=== PATIENT | female | born 1970 | race Caucasian/White ===

== ENCOUNTER 2018-11-02 12:15 | Emergency (ER) | payer SELFPAY ==
[2018-11-02] MEDS ORDERED: IBUPROFEN 400 MG TAB ONE ×2 (13:04→13:06)
[2018-11-02] MEDS ORDERED: ACETAMINOPHEN 325 MG TABLET ONE ×2 (13:04→13:06)
--- NOTE | 2018-11-02 13:12 | RAD REPORT ---
EXAM DESCRIPTION: RAD - Hand Right 3 View - 11/02/2018 1:03 pm CLINICAL HISTORY: fall from chair;Pain Trauma, pain COMPARISON: No comparisons FINDINGS: Soft tissue swelling affects the first digit. No fracture or dislocation evident.
--- NOTE | 2018-11-02 13:25 | ER ---
Nurse's Notes [facility] Name: Jose Osman Age: 48 yrs Sex: Female : 1970 Arrival Date: 11/02/2018 Time: 12:18 Bed 12 Private MD: Diagnosis: Pain in right wrist-from fall;Pain in right hand-from fall Presentation: 11/02 12:27 Presenting complaint: Patient states: "yesterday I was helping my daughter hand aj1 pictures and I fell off a chair and today my thumb and all through my wrist is killing me" Patient reports pain to right hand and wrist. Transition of care: patient was not received from another setting of care. Onset of symptoms was November 01, 2018. Risk Assessment: Do you want to hurt yourself or someone else? Patient reports no desire to harm self or others. Initial Sepsis Screen: Does the patient meet any 2 criteria? No. Patient's initial sepsis screen is negative. Does the patient have a suspected source of infection? No. Patient's initial sepsis screen is negative. Care prior to arrival: None. 12:27 Method Of Arrival: Ambulatory aj 12:27 Acuity: HYUN 4 aj1 Triage Assessment: 12:28 General: Appears in no apparent distress. comfortable, Behavior is calm, cooperative, aj1 appropriate for age. Pain: Complains of pain in right hand and right wrist Pain does not radiate. Pain currently is 8 out of 10 on a pain scale. Quality of pain is described as shooting, Pain began 1 day ago. Aggravated by repositioning. Neuro: Level of Consciousness is awake, alert, obeys commands, Oriented to person, place, time, situation, Speech is normal, Facial symmetry appears normal. Cardiovascular: Patient's skin is warm and dry. Respiratory: Airway is patent Respiratory effort is even, unlabored, Respiratory pattern is regular, symmetrical. GI: No signs and/or symptoms were reported involving the gastrointestinal system. : No signs and/or symptoms were reported regarding the genitourinary system. Derm: No signs and/or symptoms reported regarding the dermatologic system. Skin is pink, warm \\T\\ dry. normal. Musculoskeletal: Range of motion: limited in right wrist, MCP of right thumb and CMC of right thumb. 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 - Social history:: Smoking status: Patient uses tobacco products, smokes one pack cigarettes per day. - Ebola Screening: : Patient denies travel to an Ebola-affected area in the 21 days before illness onset. Screenin:30 Abuse screen: Denies threats or abuse. Denies injuries from another. Nutritional aj1 screening: No deficits noted. Tuberculosis screening: No symptoms or risk factors identified. 14:02 Fall Risk None identified. sg Assessment: 12:30 Reassessment: see triage assessment. aj1 Vital Signs: 12:28 BP 131 / 80; Pulse 87; Resp 18; Temp 97.8; Pulse Ox 97% on R/A; Weight 68.04 kg (R); aj1 Height 5 ft. 0 in. (152.40 cm) (R); 12:28 Body Mass Index 29.29 (68.04 kg, 152.40 cm) aj1 ED Course: 12:18 Patient arrived in ED. as 12:28 Triage completed. aj1 12:28 Arm band placed on Patient placed in an exam room. aj1 12:30 Patient has correct armband on for positive identification. Call light in reach. aj1 12:30 No provider procedures requiring assistance completed. aj1 12:33 Migue Bryson PA is PHCP. cp 12:33 Montez Anderson MD is Attending Physician. cp 12:46 Unique Mar RN is Primary Nurse. ss 13:02 X-ray completed. Portable x-ray completed in exam room. kp1 13:08 XRAY Hand RIGHT 3 View In Process Unspecified. EDMS 13:24 Richard Rodriguez MD is Referral Physician. cp 14:01 Patient did not have IV access during this emergency room visit. sg 14:02 Orthoglass splint: Thumb spica splint applied on right forearm. sg Administered Medications: 12:53 Drug: Ibuprofen 800 mg Route: PO; ss 14:01 Follow up: Response: No adverse reaction; Pain is decreased sg 12:53 Drug: Tylenol 650 mg Route: PO; ss 14:01 Follow up: Response: No adverse reaction sg Outcome: 13:24 Discharge ordered by . yovany 14:01 Discharged to home ambulatory. sg 14:01 Condition: good 14:01 Discharge instructions given to patient, family, Instructed on discharge instructions, follow up and referral plans. medication usage, Demonstrated understanding of instructions, follow-up care, medications. 14:02 Patient left the ED. sg Signatures: Dispatcher [employer] EDFrieda Masterson RN RN aj1 Bryan Littlejohn RN RN sg Martinez, Amelia as Smirch, Shelby, RN RN ss Page, Corey, PA PA Lyubov Yan kp1
--- NOTE | 2018-11-02 13:26 | EDPHYS ---
Physician Documentation [facility] Name: Jose Osman Age: 48 yrs Sex: Female : 1970 Arrival Date: 11/02/2018 Time: 12:18 Bed 12 Private MD: ED Physician Montez Anderson HPI: 11/02 12:38 This 48 yrs old Female presents to ER via Ambulatory with complaints of Hand cp Pain. 12:38 The patient or guardian reports pain, tenderness. The complaints affect the right hand cp and right wrist. Context: resulted from a fall, on an outstretched hand. Onset: The symptoms/episode began/occurred yesterday. Associated signs and symptoms: Pertinent negatives: cyanosis distally, numbness distally. 12:38 Modifying factors: the symptoms are aggravated by movement. 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 - Social history:: Smoking status: Patient uses tobacco products, smokes one pack cigarettes per day. - Ebola Screening: : Patient denies travel to an Ebola-affected area in the 21 days before illness onset. ROS: 12:39 Eyes: Negative for injury, pain, redness, and discharge. cp 12:39 Constitutional: Negative for body aches, chills, fever, poor PO intake. 12:39 ENT: Negative for drainage from ear(s), ear pain, sore throat, difficulty swallowing, difficulty handling secretions. 12:39 Neck: Negative for pain with movement, pain at rest, stiffness. 12:39 Cardiovascular: Negative for chest pain, palpitations. 12:39 Respiratory: Negative for cough, shortness of breath, wheezing. 12:39 Abdomen/GI: Negative for abdominal pain, nausea, vomiting, and diarrhea. 12:39 Back: Negative for pain at rest, pain with movement, radiated pain. 12:39 MS/extremity: Positive for pain, tenderness, of the right hand and right wrist, Negative for decreased range of motion, deformity, paresthesias. 12:39 Neuro: Negative for altered mental status, headache, loss of consciousness, weakness. 12:39 All other systems are negative. Exam: 12:41 Head/Face: Normocephalic, atraumatic. cp 12:41 Constitutional: The patient appears in no acute distress, alert, awake, non-toxic, well developed, well nourished. 12:41 Musculoskeletal/extremity: Extremities: grossly normal except: noted in the right thumb and ulna side of right wrist: pain, swelling, tenderness, positive for snuff box tenderness to palpation, There is no evidence of decreased ROM, deformity, Perfusion: the extremity is normally perfused throughout, Sensation intact. Vital Signs: 12:28 BP 131 / 80; Pulse 87; Resp 18; Temp 97.8; Pulse Ox 97% on R/A; Weight 68.04 kg (R); aj1 Height 5 ft. 0 in. (152.40 cm) (R); 12:28 Body Mass Index 29.29 (68.04 kg, 152.40 cm) aj1 Procedures: 14:00 Splinting: Splint applied to right hand and right wrist using Orthoglass splint, thumb cp spica type. applied by nurse. Examined by me, post splint application: neurovascular intact, Patient tolerated well. MDM: 12:33 Patient medically screened. cp 13:00 Differential diagnosis: dislocation, closed fracture, contusion, tendonitis. cp 13:23 Data reviewed: vital signs, nurses notes, radiologic studies, plain films, and as a cp result, I will discharge patient. 13:23 Test interpretation: by ED physician or midlevel provider: plain radiologic studies. cp Counseling: I had a detailed discussion with the patient and/or guardian regarding: the historical points, exam findings, and any diagnostic results supporting the discharge/admit diagnosis, radiology results, the need for outpatient follow up, a orthopedic surgeon, to return to the emergency department if symptoms worsen or persist or if there are any questions or concerns that arise at home. Response to treatment: the patient's symptoms have markedly improved after treatment, and as a result, I will discharge patient. 11/02 12:38 Order name: XRAY Hand RIGHT 3 View; Complete Time: 13:21 cp 11/02 13:21 Interpretation: Report reviewed. cp 11/02 13:22 Order name: Splint - Thumb Spica: orthoglass type; Complete Time: 14:01 cp Administered Medications: 12:53 Drug: Ibuprofen 800 mg Route: PO; ss 14:01 Follow up: Response: No adverse reaction; Pain is decreased sg 12:53 Drug: Tylenol 650 mg Route: PO; ss 14:01 Follow up: Response: No adverse reaction sg Disposition: 15:11 Co-signature as Attending Physician, Montez Anderson MD. rn Disposition: 11/02/18 13:24 Discharged to Home. Impression: Pain in right wrist - from fall, Pain in right hand - from fall. - Condition is Stable. - Discharge Instructions: Wrist Pain, Hand Pain. - Prescriptions for Ibuprofen 800 mg Oral Tablet - take 1 tablet by ORAL route every 8 hours As needed take with food; 30 tablet. - Medication Reconciliation Form, Thank You Letter, Antibiotic Education, Prescription Opioid Use form. - Follow up: Richard Rodriguez MD; When: 5 - 6 days; Reason: Recheck today's complaints. - Problem is new. - Symptoms have improved. Signatures: Dispatcher [employer] EDFrieda Masterson RN RN aj1 Bryan Littlejohn RN RN sg Nieto, Roman, MD MD rn Smirch, Shelby, RN RN ss Page, Corey, PA PA cp Corrections: (The following items were deleted from the chart) 14:02 13:24 11/02/2018 13:24 Discharged to Home. Impression: Pain in right wrist - from fall; sg Pain in right hand - from fall. Condition is Stable. Forms are Medication Reconciliation Form, Thank You Letter, Antibiotic Education, Prescription Opioid Use. Follow up: Richard Rodriguez; When: 5 - 6 days; Reason: Recheck today's complaints. Problem is new. Symptoms have improved. cp
== END 2018-11-02 14:02 | disposition home or self-care (01) ==
LOC: ER 12:15
PROC: 2W3CX1Z Immobilization of Right Lower Arm using Splint (ICD-10-PCS; principal; 2018-11-02)
DX: M79.641 Pain in right hand (principal); F17.210 Nicotine dependence, cigarettes, uncomplicated
CPT/HCPCS: 99283

== ENCOUNTER → 2024-01-21 | Day surgery (SDC) | payer OTHER ==
[~2024-01-21] MED LIST: CEFAZOLIN SODIUM 1 GM/VIAL ONE; FENTANYL CITR 100 MCG/2 ML ONE; HYDROMORPHONE HCL 1 MG/ML INJ ONE; LIDOCAINE 2% MPF 5 ML VIAL ONE; MIDAZOLAM HCL 2 MG/2 ML INJ ONE; Ringers Lactate 1,000 ML IV ONE; propofoL 200 MG/20 ML VIAL IV ONE
--- NOTE | 2024-01-21 08:06 | OP ---
Date of Procedure: 01/21/2024 Surgeon: Bryan Francois MD Preoperative Diagnosis: Left third trigger digit. Postoperative Diagnosis: Left third trigger digit. Procedure Performed: Left third trigger digit release. Estimated Blood Loss: Less than 3 cc. Complications: There were no complications. Specimens: No pathology specimens sent. Indications For Operation: Ms. Keith is a 53-year-old, who unfortunately has pain and locking of h er left third digit. There is pain at the A1 padilla and she demonstrates active triggering. She den ies any numbness or tingling, and risks, benefits, and alternatives of different methods of treating this have been discussed with her including the possibility of injection, observation, or release. S he says she understands things as presented and opts for release. All of her questions have been inv ited and answered. Description Of Procedure: The patient was taken to the operating room and placed in supine position. General anesthesia was easily obtained by the Anesthesia staff. Following this, well-padded tourni quet was placed on superior left arm. Left upper extremity was then prepped and draped in usual ster ile fashion for the procedure. The arm was then elevated, but not exsanguinated. Tourniquet was the n raised. A standard incision was made transversely at the region of the A1 padilla. This was made c arefully through skin only. Meticulous hemostasis was being maintained using bipolar electrocautery. After just going through the skin only, blunt dissection was used until the tendon, tendon sheath, and A1 padilla were identified. A sid was made in the A1 padilla with a izquierdo of synovial fluid. This was followed in a proximal to distal direction until there were no constricting bands as well as in distal to proximal direction until there were no constricting bands. After this, this finger was bro ught through range of motion and was found to have no abnormal tendon motion. The wound was gently i rrigated and skin was closed using nylon sutures. The patient was placed in a well-padded sterile dr essing, awakened, taken to recovery room in good condition. There were no complications. SE/MODL Voice ID: [id number] Report ID: [id number]
[2024-01-21 11:03] VITALS: BP 129/80; TEMP 97.3; O2SAT 96
--- NOTE | 2024-01-21 17:00 | EKG ---
Test Date: 2024-01-20 Test Time: 10:04:02 Slate Roofer: PREO MEASUREMENT RESULTS: Intervals: Rate: 68 AL: 164 QRSD: 80 QT: 414 QTc: 440 Kress: P: 55 AL: 164 QRS: 76 T: 32 INTERPRETIVE STATEMENTS: Normal sinus rhythm Normal ECG No previous ECG available for comparison Electronically Signed On 01-21-24 16:55:26 CDT by Pranav Piper
== END ==
LOC: OR 05:59
PROVIDERS: ATTEND Orthopaedic Surgery
PROC: 0LN80ZZ Release Left Hand Tendon, Open Approach (ICD-10-PCS; principal; 2024-01-21 07:00)
DX: M65.332 Trigger finger, left middle finger (principal); E78.00 Pure hypercholesterolemia, unspecified
CPT/HCPCS: 93005; 26055; J2704; J2001; J2250; J3010; J1170; J7120; J0690

== ENCOUNTER 2024-01-29 08:45 | Emergency (ER) | payer OTHER ==
--- NOTE | 2024-01-29 09:59 | RAD REPORT ---
Exam:Wrist Left 3 View HISTORY: Left wrist pain FINDINGS: No fracture or dislocation seen No significant bone or joint abnormality noted
--- NOTE | 2024-01-29 09:59 | RAD REPORT ---
Exam:Hand Left 3 View CLINICAL HISTORY: Left hand pain FINDINGS: No fracture or dislocation seen Mild narrowing and small osteophytes involves several DIP joints.
--- NOTE | 2024-01-29 12:57 | ER ---
Nurse's Notes [facility] Name: Jose Osman Age: 53 yrs Sex: Female : 1970 Arrival Date: 01/29/2024 Time: 08:45 Bed 19 Private MD: Diagnosis: Postoperative left hand swelling Presentation: 01/28 08:58 Chief complaint: Patient states: LEFT HAND SWELLING x2 DAYS, HAND SX BY [place] LAST bp SATURDAY. Coronavirus screen: At this time, the client does not indicate any symptoms associated with coronavirus-19. Ebola Screen: No symptoms or risks identified at this time. Initial Sepsis Screen: Does the patient meet any 2 criteria? No. Patient's initial sepsis screen is negative. Does the patient have a suspected source of infection? No. Patient's initial sepsis screen is negative. Risk Assessment: Do you want to hurt yourself or someone else? Patient reports no desire to harm self or others. Onset of symptoms is unknown. 08:58 Method Of Arrival: Ambulatory bp 08:58 Acuity: HYUN 3 bp Triage Assessment: 09:00 General: Appears in no apparent distress. uncomfortable, Behavior is cooperative, bp appropriate for age, anxious. Pain: Complains of pain in left hand. Musculoskeletal: Swelling present in left hand. Historical: - Allergies: 09:00 No Known Drug Allergies; bp - Home Meds: 09:00 None [Active]; bp - PMHx: 09:00 None; bp - Immunization history:: Adult Immunizations up to date. - Infectious Disease History:: Denies. - Social history:: Smoking status: Patient denies any tobacco usage or history of. Screenin:01 [facility] ED Fall Risk Assessment (Adult) History of falling in the last 3 months, bp including since admission No falls in past 3 months (0 pts) Confusion or Disorientation No (0 pts) Intoxicated or Sedated No (0 pts) Impaired Gait No (0 pts) Mobility Assist Device Used No (0 pt) Altered Elimination No (0 pt) Score/Fall Risk Level 0 - 2 = Low Risk. Abuse screen: Denies threats or abuse. Denies injuries from another. Nutritional screening: No deficits noted. Tuberculosis screening: No symptoms or risk factors identified. Assessment: 09:15 Reassessment: Patient appears in no apparent distress at this time. Patient and/or db family updated on plan of care and expected duration. Pain level reassessed. Patient is alert, oriented x 3, equal unlabored respirations, skin warm/dry/pink. General: Appears in no apparent distress. comfortable, Behavior is calm, cooperative, appropriate for age. Pain: Complains of pain in left hand. Neuro: Level of Consciousness is awake, alert, obeys commands, Oriented to person, place, time, situation. Respiratory: Airway is patent Respiratory effort is even, unlabored, Respiratory pattern is regular, symmetrical. 11:00 General: Appears in no apparent distress. comfortable, Behavior is calm, cooperative. cm10 Neuro: No deficits noted. Level of Consciousness is awake, alert, obeys commands, Oriented to person, place, time, situation. Respiratory: No deficits noted. Airway is patent Respiratory effort is even, unlabored, Respiratory pattern is regular, symmetrical. Musculoskeletal: Swelling present in left hand. 12:37 Reassessment: Patient appears in no apparent distress at this time. No changes from cm10 previously documented assessment. Patient and/or family updated on plan of care and expected duration. Pain level reassessed. Patient is alert, oriented x 3, equal unlabored respirations, skin warm/dry/pink. Vital Signs: 08:58 BP 148 / 80; Pulse 80; Resp 20; Temp 98.1; Pulse Ox 99% ; Weight 58.51 kg; Height 5 ft. bp 0 in. ; 09:45 BP 129 / 76; Pulse 74; Resp 16; Pulse Ox 95% ; db 12:11 BP 140 / 87; Pulse 75; Resp 16; Pulse Ox 100% on R/A; cm10 08:58 Body Mass Index 25.19 (58.51 kg, 152.4 cm) bp ED Course: 08:47 Patient arrived in ED. mr 08:57 Sharifa Ortiz MD is Attending Physician. sd2 08:59 Triage completed. bp 09:00 Arm band placed on. bp 09:01 Patient has correct armband on for positive identification. bp 09:51 XRAY Hand LEFT 3 View In Process Unspecified. EDMS 09:51 XRAY Wrist LEFT 3 view In Process Unspecified. EDMS 09:55 Mikayla Adams, DOROTHY is Primary Nurse. db 10:57 Report given to DOROTHY MASON. Warm blanket given. db 11:07 Sanjuana Worthy, RN is Primary Nurse. cm10 11:07 Patient taken to ultrasound. via wheelchair. cm10 12:04 Patient moved back from ultrasound. cm10 12:09 UPPER EXTREMITY VENOUS UNILATE In Process Unspecified. EDMS 12:56 Jan Dodd MD is Referral Physician. sd2 13:01 Provided Education on: Follow-up instructions. cm10 13:01 No provider procedures requiring assistance completed. Patient did not have IV access cm10 during this emergency room visit. Administered Medications: No medications were administered Medication: 09:57 VIS not applicable for this client. db Outcome: 12:56 Discharge ordered by . sd2 13:01 Discharged to home ambulatory, with family, cm10 13:01 Condition: good 13:01 Discharge instructions given to patient, Instructed on discharge instructions, follow up and referral plans. Demonstrated understanding of instructions, follow-up care, 13:02 Patient left the ED. cm10 Signatures: Dispatcher [employer] EDNE Bertha Bautista, Mir Reg mr Moises Diaz, RN RN Sharifa Cortes MD MD sd2 Mikayla Adams, RN RN Sanjuana Woods, RN RN cm10 Corrections: (The following items were deleted from the chart) 12:15 12:14 Inserted saline lock: 20 gauge in right antecubital area, using aseptic cm10 technique. Blood collected. Flushed with 10 mL NS cm10 12:15 12:14 Initial lab(s) drawn, by me, sent to lab. EKG done, by ED staff, reviewed by cm10 Sharifa Ortiz MD cm10
--- NOTE | 2024-01-29 12:57 | EDPHYS ---
Physician Documentation [facility] Name: Jose Osman Age: 53 yrs Sex: Female : 1970 Arrival Date: 01/29/2024 Time: 08:45 Bed 19 Private MD: ED Physician Sharifa Ortiz HPI: 01/28 09:20 This 53 yrs old Female presents to ER via Ambulatory with complaints of Hand Swelling. sd2 09:20 53 yo F presents with CC of L hand and wrist swelling for the past 2 days. Had a left sd2 3rd digit trigger release performed with Dr. Francois Saturday of last week or approximately 8 days ago. Reports pain and swelling has been progressively worsening. Called the clinic but was told Alessandro was out of town and to come to the ER if it worsened. . Historical: - Allergies: 09:00 No Known Drug Allergies; bp - Home Meds: 09:00 None [Active]; bp - PMHx: 09:00 None; bp - Immunization history:: Adult Immunizations up to date. - Infectious Disease History:: Denies. - Social history:: Smoking status: Patient denies any tobacco usage or history of. ROS: 09:20 Constitutional: Negative for fever, chills, and weight loss, Cardiovascular: Negative sd2 for chest pain, palpitations, and edema, Respiratory: Negative for shortness of breath, cough, wheezing. MS/Extremity: Negative for injury and deformity, positive for pain and swelling Skin: Negative for injury, rash, and discoloration, Exam: 09:20 Constitutional: This is a well developed, well nourished patient who is awake, alert, sd2 and in no acute distress. Head/Face: Normocephalic, atraumatic. Skin: Warm, dry with normal turgor. Normal color with no rashes, no lesions, and no evidence of cellulitis. incision noted to mid palm with sutures in place c/d/i with swelling noted to the entire hand and all fingers with sausage-like swelling at the digits. No pain to the digits only to the areas of the palm and wrist inferior to the incision site MS/ Extremity: Pulses equal, no cyanosis. Neurovascular intact. Full, normal range of motion. Neuro: Awake and alert, GCS 15, oriented to person, place, time, and situation. Sensory intact Psych: Awake, alert, with orientation to person, place and time. Behavior, mood, and affect are within normal limits. Vital Signs: 08:58 BP 148 / 80; Pulse 80; Resp 20; Temp 98.1; Pulse Ox 99% ; Weight 58.51 kg; Height 5 ft. bp 0 in. ; 09:45 BP 129 / 76; Pulse 74; Resp 16; Pulse Ox 95% ; db 12:11 BP 140 / 87; Pulse 75; Resp 16; Pulse Ox 100% on R/A; cm10 08:58 Body Mass Index 25.19 (58.51 kg, 152.4 cm) bp MDM: 08:57 Patient medically screened. sd2 09:20 Differential diagnosis: wound infection, tenosynovitis, cellulitis, seroma among sd2 others. Data reviewed: vital signs, nurses notes, radiologic studies. 10:57 Management of patient was discussed with the following: Search Engine Optimization Strategist: Dr. Dodd, Stephen, sd2 came to evaluate the patient. Suspects inflammatory process. Will call in anti inflammatories for the patient and follow her up in clinic later this week. Recommends US to rule out DVT prior to discharge.. 12:58 Counseling: I had a detailed discussion with the patient and/or guardian regarding the sd2 historical points, exam findings, and any diagnostic results supporting the discharge/admit diagnosis, radiology results, the need for outpatient follow up, to return to the emergency department if symptoms worsen or persist or if there are any questions or concerns that arise at home. ED course: Preliminary ultrasound report by the windshield technician shows negative for DVT. We are still pending confirmation by radiology. However, the patient needs to leave to orange picking supervisor her grandchild. She was advised that we cannot fully rule out a DVT at this time and that we will call her for any abnormal results. She is comfortable with plan for discharge and verbalizes understanding of strict return precautions.. 01/28 09:17 Order name: XRAY Hand LEFT 3 View; Complete Time: 10:04 sd2 01/28 09:17 Order name: XRAY Wrist LEFT 3 view; Complete Time: 10:04 sd2 01/28 11:15 Order name: UPPER EXTREMITY VENOUS UNILATE EDMS Administered Medications: No medications were administered Disposition Summary: 01/29/24 12:56 Discharge Ordered Problem: new sd2 Symptoms: have improved sd2 Condition: Stable sd2 Diagnosis - Postoperative left hand swelling sd2 Followup: sd2 - With: Jan Dodd MD - When: 1 - 2 days - Reason: Recheck today's complaints, Continuance of care, Re-evaluation by your physician Discharge Instructions: - Discharge Summary Sheet sd2 - Hand Pain sd2 Forms: - Medication Reconciliation Form sd2 - Antibiotic Education sd2 - Prescription Opioid Use sd2 - Patient Portal Instructions sd2 - Leadership Thank You Letter sd2 Signatures: Dispatcher [employer] Moises Miller, RN RN Sharifa Cortes MD MD sd2 Corrections: (The following items were deleted from the chart) 11:15 10:58 Extremity Venous [employer]+[email or web address] ordered. SINTIAID ODELL
[2024-01-29 13:06] VITALS: TEMP 98.1
[2024-01-29 13:09] VITALS: BP 140/87; O2SAT 100
--- NOTE | 2024-01-29 13:48 | RAD REPORT ---
EXAMINATION: UPPER EXTREMITY VENOUS UNILATE CLINICAL INDICATION: Left arm swelling TECHNIQUE: Complete bilateral duplex sonography of the left upper extremity veins was performed. The examination included compression for vein patency, color Doppler imaging and flow augmentation in response to distal compression of the internal jugular, brachiocephalic, subclavian, axillary, brachi al, radial, ulnar, cephalic and basilic veins. COMPARISON: No prior exam. FINDINGS: Duplex sonography testing of the veins of the left upper extremity is completed. Color flow imaging s hows all veins to be compressible with [id number] color filling. Pulsatile and phasic flow is present within all left upper extremity deep and superficial veins examined. IMPRESSION: No evidence of left upper extremity thrombus
== END 2024-01-29 13:02 | disposition home or self-care (01) ==
LOC: ER 08:45
DX: L76.82 Other postprocedural complications of skin and subcutaneous tissue (principal); Z98.890 Other specified postprocedural states
CPT/HCPCS: 93971; 99284

== ENCOUNTER 2024-09-20 17:27 | Emergency (ER) | payer BC, OTHER ==
[2024-09-20] MEDS ORDERED: predniSONE 20 MG TAB ONE (18:30)
[2024-09-20] MEDS ORDERED: ACETAMINOPHEN 500 MG TAB ONE (18:31)
[2024-09-20] MEDS ORDERED: IBUPROFEN 400 MG TAB ONE (18:31)
--- NOTE | 2024-09-20 18:33 | RAD REPORT ---
EXAMINATION: UPPER EXTREMITY VENOUS UNILATE CLINICAL INDICATION: Female, 54 years old.PAIN RIGHT TECHNIQUE: Multiplanar grayscale and color Doppler images were obtained in a upper extremity venous ultrasound. Spectral analysis of the Doppler waveforms were performed. COMPARISON: No prior exams FINDINGS: The internal jugular vein, subclavian vein, axillary vein, basilic vein, brachial vein, cephalic vein , radial vein, and ulnar vein were evaluated and patent. The brachial vein, cephalic vein, radial vein, and ulnar veins were compressible and patent. IMPRESSION: No evidence of deep venous thrombosis in the right upper extremity.
--- NOTE | 2024-09-20 18:57 | RAD REPORT ---
EXAM: Hand Right 3 View HISTORY: PAIN COMPARISON: None FINDINGS: Bones: No acute fracture identified. Alignment:No significant malalignment. Degenerative changes:Mild degenerative changes are present the first MCP joint. Degenerative changes are also present at the interphalangeal joints, most advanced at the second DIP joint where the findings are moderate. No erosions identified. Other: n/a IMPRESSION: No acute osseous abnormality involving the imaged hand. Chronic changes as noted above.
--- NOTE | 2024-09-20 19:18 | EDPHYS ---
Physician Documentation [facility] Name: Jose Osman Age: 54 yrs Sex: Female : 1970 Arrival Date: 09/20/2024 Time: 17:27 Bed DX3 Private MD: ED Physician Sally Murphy HPI: 09/20 18:00 This 54 yrs old Female presents to ER via Ambulatory with complaints of Hand Swelling. cp 18:00 The patient or guardian reports pain, swelling, tenderness. The complaints affect the cp right hand. Context: resulted from an unknown cause. 18:00 Onset: The symptoms/episode began/occurred yesterday. cp 18:00 Associated signs and symptoms: Pertinent negatives: cyanosis distally, decreased cp sensation distally, numbness distally, tingling distally. patient is RHD. Historical: - Allergies: 18:03 No Known Allergies; cm10 - Home Meds: 18:03 None [Active]; cm10 - PMHx: 18:03 None; cm10 - PSHx: 18:03 Total abdominal hysterectomy; cm10 - Immunization history:: Adult Immunizations up to date. - Infectious Disease History:: Denies. - Social history:: Smoking status: Patient reports the use of cigarette tobacco products, smokes one-half pack cigarettes per day. ROS: 18:05 MS/extremity: Positive for pain, swelling, tenderness, of the right hand, Negative for cp injury or acute deformity, decreased range of motion, paresthesias, 18:05 Constitutional: Negative for body aches, chills, fever, poor PO intake, cp 18:05 Neck: Negative for pain with movement, pain at rest, stiffness, 18:05 Cardiovascular: Negative for chest pain, edema, palpitations, 18:05 Respiratory: Negative for cough, shortness of breath, wheezing, 18:05 Abdomen/GI: Negative for abdominal pain, vomiting, diarrhea, constipation, 18:05 Neuro: Negative for altered mental status, headache, numbness, tingling, weakness, 18:05 All other systems are negative, Exam: 18:08 Constitutional: The patient appears in no acute distress, alert, awake, non-toxic, well cp developed, well nourished, 18:08 Neck: C-spine: vertebral tenderness, is not appreciated, crepitus, is not appreciated, cp ROM/movement: is normal, is supple, without pain, no range of motions limitations, 18:08 Chest/axilla: Inspection: normal, 18:08 Cardiovascular: Rate: normal, Rhythm: regular, Pulses: Pulses are 2+ in right radial artery. 18:08 Respiratory: the patient does not display signs of respiratory distress, Respirations: normal, no use of accessory muscles, no retractions, labored breathing, is not present, Breath sounds: are clear throughout, no decreased breath sounds, no stridor, no wheezing, 18:08 Back: pain, is absent, ROM is normal, 18:08 Skin: cellulitis, is not appreciated, no rash present. 18:08 Neuro: Orientation: to person, place \T\ time. Mentation: is normal, Motor: moves all fours, strength is normal, Sensation: no obvious gross deficits, Vital Signs: 18:02 BP 143 / 85; Pulse 77; Resp 16; Temp 97.8(TE); Pulse Ox 99% on R/A; Weight 62.6 kg; cm10 Height 5 ft. 1 in. ; Pain 8/10; 18:02 Body Mass Index 26.07 (62.60 kg, 154.94 cm) cm10 18:02 Pain Scale: Adult cm10 MDM: 18:00 Differential diagnosis: dislocation, closed fracture, tendonitis, cervical cp radiculopathy, dvt. 18:10 Medical Screening Exam initiated 19:16 Data reviewed: vital signs, nurses notes, radiologic studies, plain films, ultrasound, cp and as a result, I will discharge patient. 19:16 I considered the following discharge prescriptions or medication management in the emergency department Medications were administered in the Emergency Department. See MAR. Counseling: I had a detailed discussion with the patient and/or guardian regarding the historical points, exam findings, and any diagnostic results supporting the discharge/admit diagnosis, radiology results, the need for outpatient follow up, a orthopedic surgeon, to return to the emergency department if symptoms worsen or persist or if there are any questions or concerns that arise at home. Response to treatment: the patient's symptoms have mildly improved after treatment, and as a result, I will discharge patient. 09/20 17:55 Order name: XRAY Hand RIGHT 3 View; Complete Time: 19:14 cp 09/20 17:59 Order name: UPPER EXTREMITY VENOUS UNILATE; Complete Time: 18:35 EDMS 09/20 18:35 Interpretation: Report reviewed. cp Administered Medications: 18:38 Drug: Ibuprofen PO 800 mg PO once Route: PO; cm10 19:26 Follow up: Response: No adverse reaction cm10 18:38 Drug: Acetaminophen PO 1000 mg PO once Route: PO; cm10 19:26 Follow up: Response: No adverse reaction cm10 18:38 Drug: predniSONE PO 40 mg PO once Route: PO; cm10 19:26 Follow up: Response: No adverse reaction cm10 Disposition: 09/21 17:59 Chart complete. cp Disposition Summary: 09/20/24 19:17 Discharge Ordered Notes: Location: Home cp Problem: new cp Symptoms: have improved cp Condition: Stable cp Diagnosis - Pain in hand and fingers - right cp Followup: cp - With: Private Physician - When: 5 - 6 days - Reason: pain and swelling continues Discharge Instructions: - Discharge Summary Sheet cp - Hand Pain cp Forms: - Medication Reconciliation Form cp - Antibiotic Education cp - Prescription Opioid Use cp - Patient Portal Instructions cp - Leadership Thank You Letter cp Prescriptions: - diclofenac potassium 50 mg Oral tablet - take 1 tablet ORAL route 2 times per day as needed for pain; 30 tablet; cp Refills: 0, Product Selection Permitted - Medrol (Cody) 4 mg Oral Tablets, Dose Pack - take 1 tablet ORAL route as directed - follow package instructions; 1 packet; cp Refills: 0, Product Selection Permitted Signatures: Dispatcher [employer] EDMS Migue Bryson PA PA cp Martinez, Clarissa RN RN cm10 Corrections: (The following items were deleted from the chart) 09/20 17:55 17:55 Hand Right 3 View+RAD.RAD.BRZ ordered. EDMS EDMS 17:56 17:56 Extremity Venous Uni Ltd+US.RAD.BRZ ordered. EDMS EDMS
--- NOTE | 2024-09-20 19:18 | ER ---
Nurse's Notes [facility] Name: Jose Osman Age: 54 yrs Sex: Female : 1970 Arrival Date: 09/20/2024 Time: 17:27 Bed DX3 Private MD: Diagnosis: Pain in hand and fingers-right Presentation: 09/20 18:02 Chief complaint: Patient states: RIGHT HAND PAIN AND SWELLING ONSET YESTERDAY. DENIES cm10 ANY TRAUMA OR INJURY. Coronavirus screen: Client denies travel out of the [place] in the last 14 days. Ebola Screen: Patient denies travel to an Ebola-affected area in the 21 days before illness onset. Initial Sepsis Screen: Does the patient meet any 2 criteria? No. Patient's initial sepsis screen is negative. Does the patient have a suspected source of infection? No. Patient's initial sepsis screen is negative. Risk Assessment: Do you want to hurt yourself or someone else? Patient reports no desire to harm self or others. Onset of symptoms was September 20, 2024. 18:02 Method Of Arrival: Ambulatory cm10 18:02 Acuity: HYUN 4 cm10 Triage Assessment: 18:04 General: Appears in no apparent distress. comfortable, Behavior is calm, cooperative. cm10 Neuro: No deficits noted. Level of Consciousness is awake, alert, obeys commands, Oriented to person, place, time, situation, Appropriate for age. Respiratory: No deficits noted. Airway is patent Respiratory effort is even, unlabored, Respiratory pattern is regular, symmetrical. 18:04 Pain: Complains of pain in right hand Pain currently is 8 out of 10 on a pain scale. cm10 18:04 Musculoskeletal: Reports pain in right hand. cm10 Historical: - Allergies: 18:03 No Known Allergies; cm10 - Home Meds: 18:03 None [Active]; cm10 - PMHx: 18:03 None; cm10 - PSHx: 18:03 Total abdominal hysterectomy; cm10 - Immunization history:: Adult Immunizations up to date. - Infectious Disease History:: Denies. - Social history:: Smoking status: Patient reports the use of cigarette tobacco products, smokes one-half pack cigarettes per day. Screenin:27 [facility] ED Fall Risk Assessment (Adult) History of falling in the last 3 months, cm10 including since admission No falls in past 3 months (0 pts) Confusion or Disorientation No (0 pts) Intoxicated or Sedated No (0 pts) Impaired Gait No (0 pts) Mobility Assist Device Used No (0 pt) Altered Elimination No (0 pt) Score/Fall Risk Level 0 - 2 = Low Risk Oriented to surroundings, Maintained a safe environment, Hourly rounding (assess needs \T\ fall precautionary measures) done. Abuse screen: Denies threats or abuse. Denies injuries from another. Nutritional screening: No deficits noted. Tuberculosis screening: No symptoms or risk factors identified. Assessment: 19:26 Reassessment: Patient appears in no apparent distress at this time. Patient and/or cm10 family updated on plan of care and expected duration. Pain level reassessed. Patient is alert, oriented x 3, equal unlabored respirations, skin warm/dry/pink. Vital Signs: 18:02 BP 143 / 85; Pulse 77; Resp 16; Temp 97.8(TE); Pulse Ox 99% on R/A; Weight 62.6 kg; cm10 Height 5 ft. 1 in. ; Pain 8/10; 18:02 Body Mass Index 26.07 (62.60 kg, 154.94 cm) cm10 18:02 Pain Scale: Adult cm10 ED Course: 17:30 Patient arrived in ED. al6 17:32 Migue Bryson PA is PHCP. cp 17:32 Sally Murphy MD is Attending Physician. cp 18:03 Triage completed. cm10 18:03 Arm band placed on right wrist. Patient placed in waiting room. cm10 18:19 UPPER EXTREMITY VENOUS UNILATE In Process Unspecified. EDMS 18:37 XRAY Hand RIGHT 3 View In Process Unspecified. EDMS 19:27 Patient has correct armband on for positive identification. Provided Education on: cm10 Follow-up instructions. 19:27 No provider procedures requiring assistance completed. Patient did not have IV access cm10 during this emergency room visit. Administered Medications: 18:38 Drug: Ibuprofen PO 800 mg PO once Route: PO; cm10 19:26 Follow up: Response: No adverse reaction cm10 18:38 Drug: Acetaminophen PO 1000 mg PO once Route: PO; cm10 19:26 Follow up: Response: No adverse reaction cm10 18:38 Drug: predniSONE PO 40 mg PO once Route: PO; cm10 19:26 Follow up: Response: No adverse reaction cm10 Medication: 19:27 VIS not applicable for this client. cm10 Outcome: 19:17 Discharge ordered by . cp 19:28 Discharged to home ambulatory, cm10 19:28 Condition: good 19:28 Discharge instructions given to patient, Instructed on discharge instructions, follow up and referral plans. medication usage, Demonstrated understanding of instructions, follow-up care, medications, Prescriptions given X 2, 19:28 Patient left the ED. cm10 Signatures: Dispatcher [employer] EDMS Migue Bryson PA PA cp Martinez, Clarissa, RN RN cm10 Lisbet Spears Corrections: (The following items were deleted from the chart) 19: 18:04 Neuro: No deficits noted. Level of Consciousness is awake, alert, obeys commands, cm10 Oriented to person, place, time, situation, Appropriate for age cm10
[2024-09-20 19:34] VITALS: BP 143/85; TEMP 97.8; O2SAT 99
== END 2024-09-20 19:28 | disposition home or self-care (01) ==
LOC: ER 17:27
DX: M79.641 Pain in right hand (principal); M79.644 Pain in right finger(s); F17.210 Nicotine dependence, cigarettes, uncomplicated
CPT/HCPCS: 73130; 93971; 99283; J7512

== ENCOUNTER 2025-01-28 17:28 | Emergency (ER) | payer BC ==
--- NOTE | 2025-01-28 18:22 | RAD REPORT ---
EXAMINATION: XR RIGHT SHOUDLER CLINICAL INDICATION: Female, 54 years old. PAIN RIGHT TECHNIQUE: Multiple views of the right shoulder were obtained. COMPARISON: No prior exam. FINDINGS: Mild AC joint degenerative changes. Subtle calcific densities distal supraspinatus inserti on site may indicate calcific tendinitis. No fracture, dislocation or AVN pattern.
[2025-01-28] MEDS ORDERED: KETOROLAC 30 MG/ML INJ ONE (18:25)
[2025-01-28] MEDS ORDERED: CODEINE 30MG/APAP 300MG TAB ONE (18:26)
--- NOTE | 2025-01-28 19:09 | EDPHYS ---
Physician Documentation [facility] Name: Jose Osman Age: 54 yrs Sex: Female : 1970 Arrival Date: 01/28/2025 Time: 17:28 Bed 18 Private MD: ED Physician Montez Anderson HPI: 01/28 18:05 This 54 yrs old Female presents to ER via Ambulatory with complaints of Shoulder Pain. cp 18:05 The patient or guardian complains of pain, that is acute. right shoulder. cp 18:05 Context: resulted from an unknown reason, The patient experiences decreased range of cp motion, when attempts to raise arm, The patient reports no obvious deformity. Onset: The symptoms/episode began/occurred 1 week(s) ago. 18:05 Associated signs and symptoms: Pertinent positives: tingling, Pertinent negatives: cp abdominal pain, chest pain, neck pain, Weakness in right hand and right arm. Severity of symptoms: in the emergency department the symptoms are unchanged, despite home interventions. Treatment prior to arrival includes: no previous treatment. 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 - Infectious Disease History:: Denies. - Social history:: Smoking status: Patient reports the use of cigarette tobacco products, smokes one-half pack cigarettes per day. ROS: 18:10 Eyes: Negative for injury, pain, redness, and discharge, cp 18:10 Constitutional: Negative for body aches, chills, fever, poor PO intake, 18:10 Neck: Negative for pain with movement, pain at rest, stiffness, 18:10 Cardiovascular: Negative for chest pain, edema, palpitations, 18:10 Respiratory: Negative for cough, shortness of breath, wheezing, 18:10 Abdomen/GI: Negative for abdominal pain, nausea, vomiting, and diarrhea, 18:10 MS/extremity: Positive for decreased range of motion, pain, paresthesias, tenderness, of the right shoulder, Negative for injury or acute deformity, 18:10 Neuro: Positive for tingling, of the right hand and right arm, cp 18:10 All other systems are negative, Exam: 18:15 Constitutional: The patient appears in no acute distress, alert, awake, cp non-diaphoretic, non-toxic, well developed, well nourished, uncomfortable, 18:15 Head/Face: Normocephalic, atraumatic. cp 18:15 Eyes: Periorbital structures: appear normal, Conjunctiva: normal, no exudate, no injection, Sclera: no appreciated abnormality, Lids and lashes: appear normal, bilaterally, 18:15 ENT: External ear(s): are unremarkable, Nose: is normal, Mouth: Lips: moist, Oral mucosa: moist, Posterior pharynx: Airway: no evidence of obstruction, patent, 18:15 Chest/axilla: Inspection: normal, 18:15 Cardiovascular: Rate: normal, Rhythm: regular, 18:15 Respiratory: the patient does not display signs of respiratory distress, Respirations: normal, no use of accessory muscles, no retractions, labored breathing, is not present, Breath sounds: are clear throughout, no decreased breath sounds, no stridor, no wheezing, 18:15 Abdomen/GI: Inspection: abdomen appears normal, 18:15 Back: pain, is absent, ROM is normal, vertebral tenderness, is not appreciated, 18:15 Musculoskeletal/extremity: Extremities: noted in the right shoulder: anterior and lateral right shoulder pain and tenderness to palpation, pain with passive ROM, Pulses: noted to be 2+ in the right radial artery, the right hand and right arm Tingling of extremity. Vital Signs: 17:36 BP 150 / 84; Pulse 91; Resp 17; Temp 98.4; Pulse Ox 97% ; Weight 65.77 kg; Height 5 ft. me1 1 in. ; Pain 9/10; 18:38 BP 132 / 77; Pulse 81; Resp 18; Pulse Ox 95% ; rg5 17:36 Body Mass Index 27.40 (65.77 kg, 154.94 cm) me1 17:36 Pain Scale: Adult me1 MDM: 17:38 Medical Screening Exam initiated cp 18:05 Differential diagnosis: tendonitis, bursitis, fracture, dislocation. cp 19:05 Independent interpretation of the following test(s) in the Emergency Department X-Ray: cp My interpretation is images of right shoulder negative for fracture. 19:08 Data reviewed: vital signs, nurses notes, radiologic studies, plain films. 19:08 I considered the following discharge prescriptions or medication management in the cp emergency department Medications were administered in the Emergency Department. See MAR. Care significantly affected by the following chronic conditions: Diabetes, Hypertension. Counseling: I had a detailed discussion with the patient and/or guardian regarding the historical points, exam findings, and any diagnostic results supporting the discharge/admit diagnosis, radiology results, the need for outpatient follow up, a orthopedic surgeon, to return to the emergency department if symptoms worsen or persist or if there are any questions or concerns that arise at home. Response to treatment: the patient's symptoms have mildly improved after treatment, and as a result, I will discharge patient. 01/28 18:00 Order name: XRAY Shoulder RIGHT 2 view; Complete Time: 19:03 01/28 19:03 Interpretation: Reviewed. 01/28 18:42 Order name: Sling; Complete Time: 19:06 cp Administered Medications: 18:33 Drug: Ketorolac IM 30 mg IM once Route: IM; Site: right deltoid; rg5 19:02 Follow up: Response: No adverse reaction; Pain is decreased rg5 18:33 Drug: Dexamethasone IM 10 mg IM once Route: IM; Site: right deltoid; rg5 19:02 Follow up: Response: No adverse reaction rg5 18:33 Drug: Acetaminophen-Codeine PO (300 mg-30 mg) 2 tablet PO once; may give if patient is rg5 not driving Route: PO; 19:02 Follow up: Response: No adverse reaction; Pain is decreased rg5 Disposition Summary: 01/28/25 19:08 Discharge Ordered Notes: Location: Home cp Problem: new cp Symptoms: have improved cp Condition: Stable cp Diagnosis - Pain in right shoulder cp Followup: cp - With: Jan Dodd MD - When: 5 - 6 days - Reason: Recheck today's complaints Discharge Instructions: - Discharge Summary Sheet cp - Musculoskeletal Pain cp - Shoulder Pain cp - Shoulder Range of Motion Exercises cp Forms: - Medication Reconciliation Form cp - Antibiotic Education cp - Prescription Opioid Use cp - Patient Portal Instructions cp - Leadership Thank You Letter cp Prescriptions: - diclofenac sodium 1 % Topical gel - apply 1 gram TOPICAL route 3-4 times daily for 8-10 days apply to single knee, cp ankle, foot; for foot includes sole/toes/top of foot; 45 gram tube; Refills: 0, Product Selection Permitted - Cyclobenzaprine 10 mg Oral Tablet - take 1 tablet ORAL route every 8 hours As needed; 30 tablet; Refills: 0, cp Product Selection Permitted Addendum: 01/30/2025 07:02 Co-signature as Attending Physician, Montez Anderson MD I reviewed the patient's care r n provided by the Advanced Practice Provider and agree with the diagnosis and treatment plan. Signatures: Dispatcher [employer] EDMontez Lu MD MD rn Page, Corey, PA-C PA-C Marichuy Viveros RN RN me1 Ross Bryson RN RN rg5 Corrections: (The following items were deleted from the chart) 01/29 15:34 15:31 MS/extremity: Positive for decreased range of motion, pain, paresthesias, cp tenderness, of the right shoulder, Negative for injury or acute deformity, cp 15:34 15:31 Constitutional: Negative for body aches, chills, fever, poor PO intake, cp cp 15:34 15:31 Cardiovascular: Negative for chest pain, edema, palpitations, cp cp 15:34 15:31 Respiratory: Negative for cough, shortness of breath, wheezing, cp cp 15:34 15:31 Eyes: Negative for injury, pain, redness, and discharge, cp cp 15:34 15:31 Neck: Negative for pain with movement, pain at rest, stiffness, cp cp 15:34 15:31 Abdomen/GI: Negative for abdominal pain, nausea, vomiting, and diarrhea, cp cp
--- NOTE | 2025-01-28 19:09 | ER ---
Nurse's Notes [facility] Name: Jose Osman Age: 54 yrs Sex: Female : 1970 Arrival Date: 01/28/2025 Time: 17:28 Bed 18 Private MD: Diagnosis: Pain in right shoulder Presentation: 01/28 17:36 Chief complaint: Patient states: c/o pain to right shoulder that radiates down R arm me1 started yesterday. Pain level is 9/10, sharp, right fingers are tingling. Denies injury. Coronavirus screen: Vaccine status: Patient reports being unvaccinated. Ebola Screen: No symptoms or risks identified at this time. Initial Sepsis Screen: Does the patient meet any 2 criteria? HR > 90 bpm. Does the patient have a suspected source of infection? No. Patient's initial sepsis screen is negative. Risk Assessment: Do you want to hurt yourself or someone else? Patient reports no desire to harm self or others. Onset of symptoms was January 27, 2025. 17:36 Method Of Arrival: Amb[place] [facility] [place] 17:36 Acuity: HYUN 4 me1 ROOM ATTENDANTS: 17:38 LMP N/A - Hysterectomy, Not me1 Historical: - Allergies: 17:38 No Known Drug Allergies; me1 - PMHx: 17:38 Diabetes mellitus; Hypertensive disorder; ovarian cancer; Myocardial infarction; me1 - PSHx: 17:38 Total abdominal hysterectomy; me1 - Immunization history:: Adult Immunizations up to date. - Infectious Disease History:: Denies. - Social history:: Smoking status: Patient reports the use of cigarette tobacco products, smokes one-half pack cigarettes per day. Screenin:10 [facility] ED Fall Risk Assessment (Adult) History of falling in the last 3 months, rg5 including since admission No falls in past 3 months (0 pts) Confusion or Disorientation No (0 pts) Intoxicated or Sedated No (0 pts) Impaired Gait No (0 pts) Mobility Assist Device Used No (0 pt) Altered Elimination No (0 pt) Score/Fall Risk Level 0 - 2 = Low Risk Oriented to surroundings, Maintained a safe environment, Hourly rounding (assess needs \T\ fall precautionary measures) done. 19:10 Abuse screen: Denies threats or abuse. Nutritional screening: No deficits noted. rg5 Tuberculosis screening: No symptoms or risk factors identified. Assessment: 17:40 General: Appears uncomfortable. Pain: Complains of pain in anterior aspect of right rg5 shoulder Pain currently is 9 out of 10 on a pain scale. Quality of pain is described as aching. Neuro: Level of Consciousness is awake, alert, obeys commands. Cardiovascular: Patient's skin is warm and dry. Respiratory: Airway is patent Trachea midline Respiratory effort is even, unlabored. GI: Abdomen is round non-distended. : No signs and/or symptoms were reported regarding the genitourinary system. EENT: No signs and/or symptoms were reported regarding the EENT system. Derm: Skin is intact, Skin is normal, Skin temperature is warm. Musculoskeletal: Circulation, motion, and sensation intact. Range of motion:. 18:38 Reassessment: No changes from previously documented assessment. Patient and/or family rg5 updated on plan of care and expected duration. Pain level reassessed. Patient is alert, oriented x 3, equal unlabored respirations, skin warm/dry/pink. Vital Signs: 17:36 BP 150 / 84; Pulse 91; Resp 17; Temp 98.4; Pulse Ox 97% ; Weight 65.77 kg; Height 5 ft. me1 1 in. ; Pain 9/10; 18:38 BP 132 / 77; Pulse 81; Resp 18; Pulse Ox 95% ; rg5 17:36 Body Mass Index 27.40 (65.77 kg, 154.94 cm) me1 17:36 Pain Scale: Adult me1 ED Course: 17:30 Patient arrived in ED. mr 17:31 Migue Bryson PA-C is PHCP. cp 17:31 Montez Anderson MD is Attending Physician. cp 17:38 Triage completed. me1 17:38 Arm band placed on Patient placed in an exam room. me1 17:40 Patient has correct armband on for positive identification. Side rails up X 1. Door rg5 closed. Noise minimized. Warm blanket given. 17:40 No provider procedures requiring assistance completed. Patient did not have IV access rg5 during this emergency room visit. 17:47 Ross Bryson, DOROTHY is Primary Nurse. rg5 18:21 XRAY Shoulder RIGHT 2 view In Process Unspecified. EDMS 19:08 Dodd, Jan, MD is Referral Physician. cp Administered Medications: 18:33 Drug: Ketorolac IM 30 mg IM once Route: IM; Site: right deltoid; rg5 19:02 Follow up: Response: No adverse reaction; Pain is decreased rg5 18:33 Drug: Dexamethasone IM 10 mg IM once Route: IM; Site: right deltoid; rg5 19:02 Follow up: Response: No adverse reaction rg5 18:33 Drug: Acetaminophen-Codeine PO (300 mg-30 mg) 2 tablet PO once; may give if patient is rg5 not driving Route: PO; 19:02 Follow up: Response: No adverse reaction; Pain is decreased rg5 Medication: 17:40 VIS not applicable for this client. rg5 Outcome: 19:08 Discharge ordered by MD. cp 19:32 Discharged to home ambulatory, rg5 19:32 Condition: stable rg5 19:32 Instructed on discharge instructions, 19:32 Demonstrated understanding of instructions, Prescriptions given X 2, 19:33 Patient left the ED. rg5 Signatures: Dispatcher [employer] EDBertha Baird, Reg Reg Migue Patricia, PABeti PA-C Marichuy Viveros, RN RN me1 Ross Bryson RN RN rg5
[2025-01-28 20:14] VITALS: BP 150/84; TEMP 98.4; O2SAT 97
== END 2025-01-28 19:33 | disposition home or self-care (01) ==
LOC: ER 17:28
DX: M25.511 Pain in right shoulder (principal); F17.210 Nicotine dependence, cigarettes, uncomplicated
CPT/HCPCS: 73030; 96372; 99284; J1100; J1885

== ENCOUNTER 2025-02-19 23:06 | Emergency (ER) | payer BC ==
[2025-02-20] MEDS ORDERED: KETOROLAC 30 MG/ML INJ ONE (00:33)
[2025-02-20] MEDS ORDERED: CODEINE 30MG/APAP 300MG TAB ONE (00:34)
--- NOTE | 2025-02-20 02:38 | RAD REPORT ---
EXAM DESCRIPTION: Shoulder Left 2+ Views RadLex: XR SHOULDER 2 OR MORE VIEWS LEFT CLINICAL HISTORY: 54 years Female, PAIN COMPARISON: None. FINDINGS: 2 views of the left shoulder. No acute fracture or dislocation. Mild acromioclavicular joint degenera tive joint space narrowing. Soft tissues are unremarkable. IMPRESSION: Mild acromioclavicular joint degenerative changes. Electronically signed by: Rosie Ruiz MD 02/20/2025 02:19 AM CDT RP Due to temporary technical issues with the [employer]ACS[employer] reporting system, reports are being kathy d by the in-house radiologist without review as a courtesy to ensure prompt reporting the interpreting radiologist is fully responsible for the content of the report. Transcribed Date/Time: 02/20/2025 2:38 AM
--- NOTE | 2025-02-20 02:57 | EDPHYS ---
Physician Documentation [facility] Name: Jose Osman Age: 54 yrs Sex: Female : 1970 Arrival Date: 02/19/2025 Time: 23:06 Bed 7 Private MD: ED Physician Vahid Henry HPI: 02/20 00:00 This 54 yrs old Female presents to ER via Ambulatory with complaints of Shoulder Pain - cp and swelling. 00:00 The patient or guardian complains of decreased range of motion, pain, that is acute. cp left shoulder. Context: resulted from an unknown reason, The patient experiences decreased range of motion, when attempts to raise arm. CIGARETTE PAPER TESTER: 01:40 LMP N/A - Post-menopause, Not vc1 Historical: - Allergies: 02/19 23:40 No Known Allergies; ha1 - PMHx: 23:40 diabetes mellitus; Hypertensive disorder; Myocardial infarction; ovarian cancer; ha1 Arthritis; - PSHx: 23:40 Total abdominal hysterectomy; ha1 - Immunization history:: Adult Immunizations up to date. - Infectious Disease History:: Denies. - Social history:: Smoking status: Patient reports the use of cigarette tobacco products, smokes one-half pack cigarettes per day. ROS: 02/20 00:05 Cardiovascular: Negative for chest pain, palpitations, cp MS/extremity: Positive for decreased range of motion, pain, swelling, tenderness, of the left shoulder, Negative for injury or acute deformity, 00:05 Eyes: Negative for injury, pain, redness, and discharge, cp 00:05 Constitutional: Negative for body aches, chills, fever, poor PO intake, 00:05 Neck: Negative for pain with movement, pain at rest, stiffness, 00:05 Respiratory: Negative for cough, shortness of breath, wheezing, 00:05 Abdomen/GI: Negative for abdominal pain, nausea, vomiting, and diarrhea, 00:05 Back: Negative for injury or acute deformity, decreased range of motion, 00:05 Neuro: Negative for altered mental status, dizziness, headache, weakness, 00:05 All other systems are negative, Exam: 00:05 Head/Face: Normocephalic, atraumatic. cp 00:05 Constitutional: The patient appears in no acute distress, alert, awake, non-diaphoretic, non-toxic, well developed, well nourished, uncomfortable, 00:05 Neck: C-spine: vertebral tenderness, is not appreciated, crepitus, is not appreciated, ROM/movement: limited range of motion, is not appreciated, 00:05 Chest/axilla: Inspection: normal, Palpation: crepitus, is not appreciated, tenderness, is not appreciated, 00:05 Cardiovascular: Rate: normal, Pulses: Pulses are 2+ in left radial artery. 00:05 Respiratory: the patient does not display signs of respiratory distress, Respirations: normal, no use of accessory muscles, no retractions, labored breathing, is not present, Breath sounds: are clear throughout, no decreased breath sounds, no stridor, no wheezing, 00:05 Abdomen/GI: Inspection: abdomen appears normal, 00:05 Back: pain, that is moderate, of the left trapezius and left scapular area, 00:05 Musculoskeletal/extremity: Extremities: noted in the left shoulder: decreased ROM, pain, lateral and anterior tenderness to palpation, ROM: limited passive range of motion due to pain, in the left shoulder, Sensation intact. 00:05 Skin: no rash present. Vital Signs: 02/19 23:15 Pulse 93; Resp 16; Temp 98.2; Pulse Ox 100% on R/A; Weight 65.77 kg; Height 5 ft. 1 in. ha1 ; 02/20 01:38 BP 125 / 85; Pulse 90; Resp 16; Pulse Ox 95% ; vc1 02:23 BP 126 / 85; Pulse 90; Resp 18; Pulse Ox 95% ; vc1 02/19 23:15 Body Mass Index 27.40 (65.77 kg, 154.94 cm) ha1 MDM: 02/19 23:27 Medical Screening Exam initiated 02/20 01:00 Differential diagnosis: Anterior dislocation with fracture, Anterior dislocation cp without fracture, Posterior dislocation with fracture, Posterior dislocation without fracture, DJD, tendonitis. 02:56 Data reviewed: vital signs, nurses notes, radiologic studies, plain films. 02:56 I considered the following discharge prescriptions or medication management in the emergency department Medications were administered in the Emergency Department. See MAR. Independent interpretation of the following test(s) in the Emergency Department X-Ray: My interpretation is images of left shoulder negative for fracture. Counseling: I had a detailed discussion with the patient and/or guardian regarding the historical points, exam findings, and any diagnostic results supporting the discharge/admit diagnosis, radiology results, to return to the emergency department if symptoms worsen or persist or if there are any questions or concerns that arise at home. Response to treatment: the patient's symptoms have mildly improved after treatment, and as a result, I will discharge patient. 02/20 00:00 Order name: XRAY Shoulder LEFT 2 view cp Administered Medications: 00:46 Drug: Ketorolac IM 30 mg IM once Route: IM; Site: left deltoid; ha1 03:03 Follow up: Response: No adverse reaction; Pain is decreased tb4 00:46 Drug: Dexamethasone IM 10 mg IM once Route: IM; Site: left deltoid; ha1 03:02 Follow up: Response: No adverse reaction tb4 00:46 Drug: Acetaminophen-Codeine PO (300 mg-30 mg) 2 tabs PO once; RASS on ADMIN: Combtv4, ha1 Very Agttd3, Agttd2, Rstlss1, AlertClm0, Drwsy-1, Lt Sdtn-2, Mod Sdtn-3, Dp Sdtn-4, UnArsble-5 Route: PO; 03:03 Follow up: Response: No adverse reaction; Pain is decreased; RASS: Alert and Calm (0) tb4 Disposition: 06:01 Co-signature as Attending Physician, Vahid Henry DO I reviewed the patient's care tt7 provided by the Advanced Practice Provider and agree with the diagnosis and treatment plan. Disposition Summary: 02/20/25 02:57 Discharge Ordered Notes: Location: Home cp Problem: new cp Symptoms: have improved cp Condition: Stable cp Diagnosis - Pain in left shoulder cp Followup: cp - With: Jan Dodd MD - When: 5 - 6 days - Reason: pain continues Discharge Instructions: - Discharge Summary Sheet cp - Joint Pain cp - Arthritis cp - Shoulder Pain cp - Shoulder Range of Motion Exercises cp Forms: - Medication Reconciliation Form cp - Antibiotic Education cp - Prescription Opioid Use cp - Patient Portal Instructions cp - Leadership Thank You Letter cp Prescriptions: - diclofenac sodium 3 % Topical gel - apply 1 application TOPICAL route 2-3 times daily for 8-10 days; 45 gram tube; cp Refills: 0, Product Selection Permitted - Cyclobenzaprine 10 mg Oral Tablet - take 1 tablet ORAL route every 8 hours As needed; 30 tablet; Refills: 0, cp Product Selection Permitted - Medrol (Cody) 4 mg Oral Tablets, Dose Pack - take 1 tablet ORAL route as directed - follow package instructions; 1 packet; cp Refills: 0, Product Selection Permitted Signatures: Dispatcher [employer] EDMS Migue Bryson PA-C PA-C cp Ayala, Heidy, RN RN ha1 Vahid Henry DO DO tt7 Shiela Champagne RN tb4 Corrections: (The following items were deleted from the chart) 17: 04:56 MS/extremity: Positive for decreased range of motion, pain, swelling, tenderness, cp of the left shoulder, Negative for injury or acute deformity, cp 17: 04:56 Cardiovascular: Negative for chest pain, palpitations, cp cp
--- NOTE | 2025-02-20 02:57 | ER ---
Nurse's Notes [facility] Name: Jose Osman Age: 54 yrs Sex: Female : 1970 Arrival Date: 02/19/2025 Time: 23:06 Bed 7 Private MD: Diagnosis: Pain in left shoulder Presentation: 02/19 23:15 Chief complaint: Patient states: LEFT SHOULDER PAIN STARTED FIVE DAYS AGO. ha1 23:15 Coronavirus screen: Client denies travel out of the [place] in the last 14 days. Ebola ha1 Screen: No symptoms or risks identified at this time. Initial Sepsis Screen: Does the patient meet any 2 criteria? No. Patient's initial sepsis screen is negative. Does the patient have a suspected source of infection? No. Patient's initial sepsis screen is negative. Risk Assessment: Do you want to hurt yourself or someone else? Patient reports no desire to harm self or others. Onset of symptoms was February 20, 2025. 23:15 Method Of Arrival: Ambulatory ha1 23:15 Acuity: HYUN 4 ha1 Triage Assessment: 23:40 General: Appears uncomfortable, Behavior is calm, cooperative. Pain: Complains of pain ha1 in LEFT SHOULDER Pain currently is 10 out of 10 on a pain scale. Quality of pain is described as aching. Neuro: Level of Consciousness is awake, alert, obeys commands, Oriented to person, place, time, situation. Cardiovascular: Patient's skin is warm and dry. Respiratory: Airway is patent Respiratory effort is even, unlabored, Respiratory pattern is regular, symmetrical. TRANSCRIPTION COORDINATOR: 02/20 01:40 LMP N/A - Post-menopause, Not vc1 Historical: - Allergies: 02/19 23:40 No Known Allergies; ha1 - PMHx: 23:40 diabetes mellitus; Hypertensive disorder; Myocardial infarction; ovarian cancer; ha1 Arthritis; - PSHx: 23:40 Total abdominal hysterectomy; ha1 - Immunization history:: Adult Immunizations up to date. - Infectious Disease History:: Denies. - Social history:: Smoking status: Patient reports the use of cigarette tobacco products, smokes one-half pack cigarettes per day. Screenin:15 [facility] ED Fall Risk Assessment (Adult) History of falling in the last 3 months, vc1 including since admission No falls in past 3 months (0 pts) Confusion or Disorientation No (0 pts) Intoxicated or Sedated No (0 pts) Impaired Gait No (0 pts) Mobility Assist Device Used No (0 pt) Altered Elimination No (0 pt) Score/Fall Risk Level 0 - 2 = Low Risk Oriented to surroundings, Maintained a safe environment, Educated pt \T\ family on fall prevention, incl call for assistance when getting out of bed, Assessed \T\ reinforced patient's understanding of fall precautions, Hourly rounding (assess needs \T\ fall precautionary measures) done. Abuse screen: Denies threats or abuse. Nutritional screening: No deficits noted. Tuberculosis screening: No symptoms or risk factors identified. Assessment: 02/20 01:14 Reassessment: Patient appears in no apparent distress at this time. No changes from vc1 previously documented assessment. Patient and/or family updated on plan of care and expected duration. Pain level reassessed. Patient is alert, oriented x 3, equal unlabored respirations, skin warm/dry/pink. 02:23 Reassessment: Patient appears in no apparent distress at this time. No changes from vc1 previously documented assessment. Patient and/or family updated on plan of care and expected duration. Pain level reassessed. Patient is alert, oriented x 3, equal unlabored respirations, skin warm/dry/pink. 03:07 General: Appears in no apparent distress. comfortable, Behavior is calm, cooperative. tb4 Neuro: Level of Consciousness is awake, alert, obeys commands, Oriented to person, place, time, situation, Moves all extremities. Full function Gait is steady, Speech is normal, Facial symmetry appears normal. Vital Signs: 02/19 23:15 Pulse 93; Resp 16; Temp 98.2; Pulse Ox 100% on R/A; Weight 65.77 kg; Height 5 ft. 1 in. ha1 ; 02/20 01:38 BP 125 / 85; Pulse 90; Resp 16; Pulse Ox 95% ; vc1 02:23 BP 126 / 85; Pulse 90; Resp 18; Pulse Ox 95% ; vc1 02/19 23:15 Body Mass Index 27.40 (65.77 kg, 154.94 cm) ha1 ED Course: 02/19 23:13 Patient arrived in ED. al6 23:15 Arm band placed on right wrist. vc1 23:15 Patient has correct armband on for positive identification. Bed in low position. Call vc1 light in reach. Provided Education on: Plan of care. Pulse ox on. NIBP on. 23:17 Migue Bryson PA-C is PHCP. cp 23:17 Vahid Henry DO is Attending Physician. cp 02/20 00:05 Triage completed. ha1 00:20 XRAY Shoulder LEFT 2 view In Process Unspecified. EDMS 00:45 Aimee Glover, RN is Primary Nurse. ha1 02:56 Jan Dodd MD is Referral Physician. cp 03:07 No provider procedures requiring assistance completed. Patient did not have IV access tb4 during this emergency room visit. Administered Medications: 00:46 Drug: Ketorolac IM 30 mg IM once Route: IM; Site: left deltoid; ha1 03:03 Follow up: Response: No adverse reaction; Pain is decreased tb4 00:46 Drug: Dexamethasone IM 10 mg IM once Route: IM; Site: left deltoid; ha1 03:02 Follow up: Response: No adverse reaction tb4 00:46 Drug: Acetaminophen-Codeine PO (300 mg-30 mg) 2 tabs PO once; RASS on ADMIN: Combtv4, ha1 Very Agttd3, Agttd2, Rstlss1, AlertClm0, Drwsy-1, Lt Sdtn-2, Mod Sdtn-3, Dp Sdtn-4, UnArsble-5 Route: PO; 03:03 Follow up: Response: No adverse reaction; Pain is decreased; RASS: Alert and Calm (0) tb4 Medication: 01:40 VIS not applicable for this client. vc1 Outcome: 02:57 Discharge ordered by MD. cp 03:08 Discharged to home ambulatory, with family, tb4 03:08 Condition: stable 03:08 Discharge instructions given to patient, family, Instructed on discharge instructions, follow up and referral plans. Demonstrated understanding of instructions, follow-up care, medications, Prescriptions given X 3, 03:08 Patient left the ED. tb4 Signatures: Dispatcher [employer] EDMS Migue Bryson PA-C PA-C cp Calcote, Vanessa, RN RN vc1 Aimee Glover RN RN ha1 Lisbet Spears al6 Shiela Champagne RN RN tb4
[2025-02-20 10:06] VITALS: TEMP 98.2
[2025-02-20 10:07] VITALS: O2SAT 95
[2025-02-20 10:08] VITALS: BP 126/85
== END 2025-02-20 03:08 | disposition home or self-care (01) ==
LOC: ER 23:06
DX: M25.512 Pain in left shoulder (principal); F17.210 Nicotine dependence, cigarettes, uncomplicated
CPT/HCPCS: 73030; 96372; 99284; J1885; J1100